=== PATIENT | female | born 1995 | race Caucasian/White ===

== ENCOUNTER 2018-04-15 20:36 | Emergency (ER) | payer SELFPAY ==
--- NOTE | 2018-04-15 23:47 | ER ---
Nurse's Notes [facility] Name: Gabriela Foster Age: 22 yrs Sex: Female : 1995 Arrival Date: 04/15/2018 Time: 20:41 Bed 20 Private MD: Diagnosis: Person with feared health complaint in whom no diagnosis is made Presentation: 04/15 21:02 Presenting complaint: Patient states: "For the past 3 days I have been having pain in aj1 my neck. Its much worse than a pulled muscle. I'm worried because when I was 11 I had an abscess in my neck that needed surgery and I had to have a drain. It was much more swollen that time." Patient reports that the pain is aggravated by speaking and swallowing, denies fever. Reports that she is currently 7 weeks . Transition of care: patient was not received from another setting of care. Onset of symptoms was April 12, 2018. Initial Sepsis Screen: Does the patient meet any 2 criteria? No. Patient's initial sepsis screen is negative. Does the patient have a suspected source of infection? No. Patient's initial sepsis screen is negative. Care prior to arrival: None. 21:02 Method Of Arrival: Ambulatory aj1 21:02 Acuity: JOSE 4 aj1 Triage Assessment: 21:06 General: Appears in no apparent distress. uncomfortable, Behavior is calm, cooperative. aj1 Pain: Complains of pain in left side of neck. 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 - Social history:: Smoking status: Patient uses tobacco products, 4 cigarettes per day. Screenin:15 Abuse screen: Denies threats or abuse. Denies injuries from another. Nutritional aj1 screening: No deficits noted. Tuberculosis screening: No symptoms or risk factors identified. 22:44 Fall Risk None identified. ak1 Assessment: 21:15 General: Appears in no apparent distress. uncomfortable, Behavior is calm, cooperative, aj1 appropriate for age. Pain: Complains of pain in left side of neck Pain does not radiate. Pain currently is 7 out of 10 on a pain scale. Quality of pain is described as throbbing, Pain began 2-3 days ago. Is continuous, Alleviated by nothing. Aggravated by talking and swallowing. Neuro: Level of Consciousness is awake, alert, obeys commands, Oriented to person, place, time, situation, Speech is normal, Facial symmetry appears normal. Cardiovascular: Patient's skin is warm and dry. Respiratory: Airway is patent Respiratory effort is even, unlabored, Respiratory pattern is regular, symmetrical, Breath sounds are clear bilaterally. GI: No signs and/or symptoms were reported involving the gastrointestinal system. : No signs and/or symptoms were reported regarding the genitourinary system. EENT: No signs and/or symptoms were reported regarding the EENT system. Derm: No signs and/or symptoms reported regarding the dermatologic system. Skin is pink, warm \\T\\ dry. normal. Musculoskeletal: No signs and/or symptoms reported regarding the musculoskeletal system. Circulation, motion, and sensation intact. 23:16 Reassessment: Patient appears in no apparent distress at this time. Patient and/or ak1 family updated on plan of care and expected duration. Pain level reassessed. Patient is alert, oriented x 3, equal unlabored respirations, skin warm/dry/pink. pt resting with eyes closed, resp even an unlabored. Vital Signs: 21:06 BP 140 / 83; Pulse 75; Resp 18; Temp 98.3(O); Pulse Ox 97% on R/A; Weight 72.12 kg (R); aj1 Height 5 ft. 4 in. (162.56 cm); Pain 7/10; 23:15 BP 134 / 73; Pulse 84; Resp 20; Temp 98.4(TE); Pulse Ox 98% on R/A; Pain 6/10; ak1 23:16 BP 118 / 84; Pulse 61; Resp 16; Temp 98.4; Pulse Ox 98% on R/A; ak1 21:06 Body Mass Index 27.29 (72.12 kg, 162.56 cm) aj1 ED Course: 20:41 Patient arrived in ED. al2 20:51 [facility]inab Rubio F[facility]-C [facility] snw 20:51 Rodrick Nava MD is Attending Physician. snw 21:02 Mariah Tobias RN is Primary Nurse. aj1 21:05 Triage completed. aj1 21:06 Arm band placed on. aj1 21:15 Patient has correct armband on for positive identification. Bed in low position. Call aj1 light in reach. Side rails up X 1. 21:15 No provider procedures requiring assistance completed. aj1 22:24 Strep swab sent to lab. ak1 22:53 Extremity Nonvascular Complete In Process Unspecified. EDMS 23:52 Patient did not have IV access during this emergency room visit. ak1 Administered Medications: No medications were administered Outcome: 23:46 Discharge ordered by . w 23:52 Discharged to home ambulatory. ak1 23:52 Condition: good 23:52 Discharge instructions given to patient, Instructed on discharge instructions, follow up and referral plans. medication usage, Demonstrated understanding of instructions, follow-up care, medications. 23:53 Patient left the ED. ak1 Signatures: Dispatcher [employer] EDMariah Siddiqui, SOY RN raz1 Zeinab Rubio, BRIM PLATER-C BRIM PLATER-Csnw Mckenzie Lang RN RN [email or web address] Shi Desouza
--- NOTE | 2018-04-15 23:47 | EDPHYS ---
Physician Documentation [facility] Name: Gabriela Foster Age: 22 yrs Sex: Female : 1995 Arrival Date: 04/15/2018 Time: 20:41 Bed 20 Private MD: ED Physician Rodrick Nava HPI: 04/15 22:11 This 22 yrs old Female presents to ER via Ambulatory with complaints of snw Abscess. 22:12 The patient or guardian complains of pain, that is acute. The symptoms are located on snw the left side of neck. Onset: The symptoms/episode began/occurred suddenly, 3 day(s) ago, and became persistent. Context: The problem was sustained at an unknown location, The neck injury/problem resulted from unknown. Associated signs and symptoms: Pertinent positives: URI 2 weeks ago, Pertinent negatives: chills, fever, headache, nausea, numbness, tingling, weakness. The pain does not radiate. Modifying factors: The symptoms are alleviated by nothing. the symptoms are aggravated by pressure. Severity of symptoms: At their worst the symptoms were pt is in a panic, I cannot get her to say what her actual fear is resulting from. It is unknown whether or not the patient has had similar symptoms in the past. It is unknown whether or not the patient has recently seen a physician. 7 weeks , pt had unknown abscess to left neck 11 years ago. 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 - Social history:: Smoking status: Patient uses tobacco products, 4 cigarettes per day. ROS: 22:10 Constitutional: Negative for fever, chills, and weight loss, Eyes: Negative for injury, snw pain, redness, and discharge, ENT: Negative for injury, pain, and discharge, Cardiovascular: Negative for chest pain, palpitations, and edema, Respiratory: Negative for shortness of breath, cough, wheezing, and pleuritic chest pain, Abdomen/GI: Negative for abdominal pain, nausea, vomiting, diarrhea, and constipation, Back: Negative for injury and pain, : Negative for injury, bleeding, discharge, and swelling, MS/Extremity: Negative for injury and deformity, Skin: Negative for injury, rash, and discoloration, Neuro: Negative for headache, weakness, numbness, tingling, and seizure, Psych: Negative for depression, anxiety, suicide ideation, homicidal ideation, and hallucinations. 22:10 Neck: Positive for swelling, of the left sternocleidomastoid. Exam: 22:04 Head/Face: Normocephalic, atraumatic. Eyes: Pupils equal round and reactive to light, snw extra-ocular motions intact. Lids and lashes normal. Conjunctiva and sclera are non-icteric and not injected. Cornea within normal limits. Periorbital areas with no swelling, redness, or edema. ENT: Nares patent. No nasal discharge, no septal abnormalities noted. Tympanic membranes are normal and external auditory canals are clear. Oropharynx with no redness, swelling, or masses, exudates, or evidence of obstruction, uvula midline. Mucous membranes moist. Chest/axilla: Normal chest wall appearance and motion. Nontender with no deformity. No lesions are appreciated. Cardiovascular: Regular rate and rhythm with a normal S1 and S2. No gallops, murmurs, or rubs. Normal PMI, no JVD. No pulse deficits. Respiratory: Lungs have equal breath sounds bilaterally, clear to auscultation and percussion. No rales, rhonchi or wheezes noted. No increased work of breathing, no retractions or nasal flaring. Abdomen/GI: Soft, non-tender, with normal bowel sounds. No distension or tympany. No guarding or rebound. No evidence of tenderness throughout. Back: No spinal tenderness. No costovertebral tenderness. Full range of motion. Skin: Warm, dry with normal turgor. Normal color with no rashes, no lesions, and no evidence of cellulitis. MS/ Extremity: Pulses equal, no cyanosis. Neurovascular intact. Full, normal range of motion. Neuro: Awake and alert, GCS 15, oriented to person, place, time, and situation. Cranial nerves II-XII grossly intact. Motor strength 5/5 in all extremities. Sensory grossly intact. Cerebellar exam normal. Normal gait. 22:04 Constitutional: The patient appears awake, anxious, uncomfortable, distraught, unable to ascertain why pt is so very anxious. tearful, fearful, frustrated and resentful that I tried to calm her. 22:04 Neck: External neck: no acute changes, Thyroid: appears normal, Trachea: is midline with no obvious abnormalities, ROM/movement: is normal. Vital Signs: 21:06 BP 140 / 83; Pulse 75; Resp 18; Temp 98.3(O); Pulse Ox 97% on R/A; Weight 72.12 kg (R); aj1 Height 5 ft. 4 in. (162.56 cm); Pain 7/10; 23:15 BP 134 / 73; Pulse 84; Resp 20; Temp 98.4(TE); Pulse Ox 98% on R/A; Pain 6/10; ak1 23:16 BP 118 / 84; Pulse 61; Resp 16; Temp 98.4; Pulse Ox 98% on R/A; ak1 21:06 Body Mass Index 27.29 (72.12 kg, 162.56 cm) aj1 MDM: 21:54 Patient medically screened. snw 22:11 Data reviewed: vital signs, nurses notes. Data interpreted: Pulse oximetry: on room air snw is 97 %. Interpretation: normal. Counseling: I had a detailed discussion with the patient and/or guardian regarding: the historical points, exam findings, and any diagnostic results supporting the discharge/admit diagnosis, the presence of at least one elevated blood pressure reading (>120/80) during this emergency department visit, the need for outpatient follow up. 04/15 22:04 Order name: Strep; Complete Time: 22:45 snw 04/15 23:03 Order name: Throat Culture EDMS 04/15 22:30 Order name: Extremity Nonvascular Complete EDMS Administered Medications: No medications were administered Disposition: 04/15/18 23:46 Discharged to Home. Impression: Person with feared health complaint in whom no diagnosis is made. - Condition is Stable. - Discharge Instructions: Muscle Pain, Adult, Soft Tissue Injury of the Neck. - Prescriptions for Tylenol 325 mg Oral Tablet - take 2 tablet by ORAL route every 6 hours as needed; 1 bottle. - Medication Reconciliation Form, Thank You Letter, Antibiotic Education, Prescription Opioid Use form. - Follow up: Private Physician; When: 1 - 2 days; Reason: Recheck today's complaints, Continuance of care, Re-evaluation by your physician. Follow up: Emergency Department; When: As needed; Reason: Worsening of condition. Addendum: 04/17/2018 07:03 Co-signature as Attending Physician, Rodrick Nava MD. r n Signatures: Dispatcher [employer] [facility] Mariah Tobias RN RN aj1 Zeinab Rubio, NUT FEEDER-C NUT FEEDER-Csnw Rodrick Nava MD MD rn Krenek, Amber, RN RN ak1 Corrections: (The following items were deleted from the chart) 04/15 22:30 22:19 Carotid Artery Bilateral+[id number].RAD.BRZ ordered. [facility] EDVA 23:53 23:46 04/15/2018 23:46 Discharged to Home. Impression: Person with feared health ak1 complaint in whom no diagnosis is made. Condition is Stable. Discharge Instructions: Muscle Pain, Adult, Soft Tissue Injury of the Neck. Prescriptions for Tylenol 325 mg Oral Tablet - take 2 tablet by ORAL route every 6 hours as needed; 1 bottle. and Forms are Medication Reconciliation Form, Thank You Letter, Antibiotic Education, Prescription Opioid Use. Follow up: Private Physician; When: 1 - 2 days; Reason: Recheck today's complaints, Continuance of care, Re-evaluation by your physician. Follow up: Emergency Department; When: As needed; Reason: Worsening of condition. snw
[2018-04-16 00:29] VITALS: TEMP 98.4; O2SAT 98
[2018-04-16 00:30] VITALS: BP 118/84
--- NOTE | 2018-04-16 06:39 | RAD REPORT ---
EXAM DESCRIPTION: US - Extremity Nonvascular Complete - 04/15/2018 10:53 pm CLINICAL HISTORY: Left-sided neck pain, history of soft tissue abscess in this location COMPARISON: None. FINDINGS: In the soft tissues of the neck in the area of pain, no abscess, lymphadenopathy or other mass identifiable. Skeletal musculature, vasculature and soft tissues otherwise unremarkable. No abno rmality seen to explain neck pain symptoms. IMPRESSION: Negative examination of the left neck soft tissues.
== END 2018-04-15 23:53 | disposition home or self-care (01) ==
LOC: ER 20:36
DX: Z71.1 Person with feared health complaint in whom no diagnosis is made (principal); O99.331 Smoking (tobacco) complicating pregnancy, first trimester; F17.210 Nicotine dependence, cigarettes, uncomplicated; Z3A.01 Less than 8 weeks gestation of pregnancy; Z88.0 Allergy status to penicillin
CPT/HCPCS: 76881; 87070; 87081; 99283